=== PATIENT | male | born 1980 | race Two or more races ===

== ENCOUNTER 2020-02-04 06:54 | Inpatient (IN) | payer MEDICAID ==
[~2020-02-04] VITALS: Ht 162.6 cm; Wt 55.6 kg
--- NOTE | 2020-02-04 07:09 | NUR ---
MONITOR SHOWS SINUS TACH, SBAR REPORT TO AM SHIFT, PT SLEEPING.
--- NOTE | 2020-02-04 07:12 | NUR ---
ra 92%, nc 3 litre of O2 via nc improved to 99%.
[2020-02-04] MEDS ORDERED: IV NORMAL SALINE 1000 ML BAG IV ONE ×3 (07:15→08:30)
--- NOTE | 2020-02-04 07:30 | NUR ---
pt awake, axo x 4. pt admits to occasional cocaine use. pt deneis cp or sob at this time.
[2020-02-04 07:35] LABS: BASOPHILS % (AUTO) 0.2 % (0.0-2.0); EOSINOPHILS % (AUTO) 0.1 % (0.0-7.0); HEMATOCRIT 43.6 % (36.7-47.1); HEMOGLOBIN 14.8 g/dL (12.5-16.3); LYMPHOCYTES # (AUTO) 0.6 K/uL (20.0-40.0); LYMPHOCYTES % (AUTO) 6.2 % (20.5-51.5); MEAN CORPUSCULAR HEMOGLOBIN 32.6 uug (23.8-33.4); MEAN CORPUSCULAR HGB CONC 34 g/dL (32.5-36.3); MEAN CORPUSCULAR VOLUME 96.1 fL (73.0-96.2); MONOCYTES # (AUTO) 0.5 K/uL (2.0-10.0); MONOCYTES % (AUTO) 5.7 % (0.0-11.0); NEUTROPHILS # (AUTO) 8.4 K/uL (1.8-8.9); NEUTROPHILS % (AUTO) 87.8 % (38.5-71.5); PLATELET COUNT (AUTO) 225 K/uL (152-348); RED BLOOD CELL COUNT(AUTO) 4.54 MIL/uL (4.06-5.63); WHITE BLOOD COUNT (AUTO) 9.6 K/uL (3.6-10.2)
[2020-02-04 07:37] LABS: CARBON DIOXIDE 16 mmol/L (21-32); CHLORIDE 99 mmol/L (98-107); CREATININE 1.7 mg/dL (0.6-1.3); GLUCOSE 198 mg/dL (74-106); POTASSIUM 3.1 mmol/L (3.5-5.1); UREA NITROGEN, BLOOD 11 mg/dL (7-18)
[2020-02-04 07:45] LABS: ETHANOL 4 MG/DL (0-0)
[2020-02-04 07:52] LABS: ALANINE AMINOTRANSFERASE 122 U/L (16-63); ALKALINE PHOSPHATASE 77 U/L (50-136); ASPARTATE AMINOTRANSFERASE 163 U/L (15-37); BILIRUBIN,DIRECT 0.3 mg/dL (0.0-0.2); BILIRUBIN,TOTAL 0.7 mg/dL (0.2-1.0); CREATINE KINASE, TOTAL 1958 U/L (39-308); TOTAL PROTEIN, SERUM 8.4 g/dL (6.4-8.2)
[2020-02-04 07:56] LABS: ACETAMINOPHEN < 2.0 ug/mL (10-30)
[2020-02-04 08:12] LABS: *BILIRUBIN,URIN NEGATIVE (NEGATIVE); *BLOOD, URINE 2+ (NEGATIVE); *CLARITY,URINE CLEAR (CLEAR); *COLOR,URINE YELLOW (YELLOW); *KETONES,URINE NEGATIVE (NEGATIVE); LEUKOCYTE ESTERASE ,URINE NEGATIVE (NEGATIVE); NITRITE, URINE NEGATIVE (NEGATIVE); UGLUCOSE NEGATIVE (NEGATIVE)
[2020-02-04] MEDS ORDERED: ASPIRIN 81 MG TAB.CHEW PO ONE (08:15)
[2020-02-04 08:23] LABS: *AMPHETAMINE, URINE POSITIVE (NEGATIVE); *CANNABINOID, URINE NEGATIVE (NEGATIVE); *COCCAINE, URINE NEGATIVE (NEGATIVE); *OPIATE, URINE NEGATIVE (NEGATIVE); *PHENCYCLIDINE SCREEN,URINE NEGATIVE (NEGATIVE)
[2020-02-04] MEDS ORDERED: POTASSIUM BICARBONATE/CIT AC 25 MEQ TABLET.EFF PO ONE (08:30)
[2020-02-04] MEDS ORDERED: ASPIRIN 81 MG TAB.CHEW ONE (08:31)
[2020-02-04] MEDS ORDERED: POTASSIUM BICARBONATE/CIT AC 25 MEQ TABLET.EFF ONE (08:31)
--- NOTE | 2020-02-04 08:37 | NUR ---
Dr. sorenson admitted the pt to tele. transfer pending on bed availability
[2020-02-04] MEDS ORDERED: VANCOMYCIN IV 200 ML ONE (08:44)
[2020-02-04] MEDS ORDERED: CEFTRIAXONE /D5W 50ML IVPB **ER PYXIS IV ONE (08:45)
[2020-02-04] MEDS ORDERED: CEFTRIAXONE 1 G in IV DEXTROSE 5% 50 ML IV ONE (08:45)
[2020-02-04] MEDS ORDERED: LORAZEPAM 2 MG/1 ML VIAL IM ONE (08:45)
[2020-02-04] MEDS ORDERED: VANCOMYCIN IV 1,500 MG in IV DEXTROSE 5% 250 ML IV ONE (08:45)
[2020-02-04] MEDS ORDERED: LORAZEPAM 2 MG/1 ML VIAL ONE ×2 (09:10→16:59)
--- NOTE | 2020-02-04 11:00 | NUR ---
Paris villanueva in EDM - 02/04/[address] at [address] delta quesada to dmit the pt to ms
[2020-02-04 11:04] LABS: WBC,URINE 0-3 /HPF (0-3)
[2020-02-04 11:05] LABS: BACTERIA,URINE NONE SEEN /HPF (NONE SEEN); SQUAMOUS EPITHELIAL CELL,UR FEW /HPF (NONE SEEN)
--- NOTE | 2020-02-04 11:13 | NUR ---
ELANA MONTOYA TALKING TO DR. RANGEL, CARDIOLOGY CONSULT.
[2020-02-04] MEDS ORDERED: HEPARIN/D5W DRIP 500 ML IV PRN (11:15)
[2020-02-04] MEDS ORDERED: POTASSIUM CHLORIDE 20 MEQ in IV D5/ 0.9% NACL 1,000 ML IV PRN (11:15)
[2020-02-04] MEDS ORDERED: LORAZEPAM 2 MG/1 ML VIAL IV PRN (11:15)
[2020-02-04] MEDS ORDERED: MORPHINE SULFATE 2 MG/1 ML DISP.SYRIN IV PRN (11:15)
[2020-02-04] MEDS ORDERED: ONDANSETRON 4 MG/2 ML VIAL IV PRN (11:15)
[2020-02-04 11:32] LABS: BILIRUBIN,TOTAL 0.6 mg/dL (0.2-1.0); POTASSIUM 4.5 mmol/L (3.5-5.1); TOTAL PROTEIN, SERUM 6.3 g/dL (6.4-8.2)
[2020-02-04 13:14] LABS: MAGNESIUM 2.7 mg/dL (1.8-2.4); PHOSPHOROUS 2.5 mg/dL (2.5-4.9)
--- NOTE | 2020-02-04 13:29 | NUR ---
DR. RANGEL, SQL MANAGER AT BEDSIDE, ORDERING TO D/C HEPARIN DRIP. HEPARIN DRIP WAS NOT STARTED ON THE PT.
[2020-02-04 13:43] LABS: BASOPHILS % (AUTO) 0.3 % (0.0-2.0); HEMATOCRIT 38.5 % (36.7-47.1); HEMOGLOBIN 13.2 g/dL (12.5-16.3); LYMPHOCYTES # (AUTO) 1.5 K/uL (20.0-40.0); LYMPHOCYTES % (AUTO) 15.7 % (20.5-51.5); MEAN CORPUSCULAR HEMOGLOBIN 31.9 uug (23.8-33.4); MEAN CORPUSCULAR HGB CONC 34 g/dL (32.5-36.3); MEAN CORPUSCULAR VOLUME 93.4 fL (73.0-96.2); MONOCYTES # (AUTO) 1.1 K/uL (2.0-10.0); MONOCYTES % (AUTO) 11.7 % (0.0-11.0); NEUTROPHILS # (AUTO) 6.8 K/uL (1.8-8.9); NEUTROPHILS % (AUTO) 72.3 % (38.5-71.5); PLATELET COUNT (AUTO) 200 K/uL (152-348); RED BLOOD CELL COUNT(AUTO) 4.13 MIL/uL (4.06-5.63); WHITE BLOOD COUNT (AUTO) 9.5 K/uL (3.6-10.2)
--- NOTE | 2020-02-04 16:14 | NUR ---
PT ON BED, MONITOR ON, PT DENEIS ANY CO AT THIS POINT. PT REQUESTING WATER AND JUICE. BUT PT NPO BY ADMITTING
[2020-02-04] MEDS ORDERED: OLANZAPINE 5 MG TABLET ONE (16:25)
--- NOTE | 2020-02-04 16:29 | NUR ---
PT CAME OUT OF ROOM, LOOKING FRIGHTENED, SAYING " THERE ARE COUPLE OF MICED COMING OUT OF THE WHOLE IN THE CEILING", PT TOOK THE HEPLOCK .TRIED TO CALM THE PT. CHANGED THE PT ROOM AND COMFORT MEASURES PROVIDED. ZYPREXA WAS ORDERED BY ELANA MONTOYA, ADMINISTERED. ONCE ON BED AND ON MONITOR, PT WAS TACHCARDIC RATE OF 140
--- NOTE | 2020-02-04 16:37 | NUR ---
checked back on the pt in room 5, pt not on the bed, rushed out side with Dr. trejo to find the pt.
--- NOTE | 2020-02-04 16:50 | NUR ---
found the pt in the back parking lot, wet, standing on top of one the cars in the parking lot, scared of being attacked by the mice. with Dr. dean, assissted pt down the car safely, pt said that he slipped on a puddle of water and thats why he is wet. pt denied that his head hit the floor, no hematoma/abrasion noticed on examination on the head. pt deneis any pain or any injury to any part of the body, small abrasions noticed on the right knee. pt was able to walk back from back parking lot to room 5 in bed. placed pt on bed, monitor on, comfort measures provided. medicated pt with er md orders. see the emar.
[2020-02-04] MEDS ORDERED: diphenhydrAMINE 50 MG/1 ML VIAL IM STA (16:51)
[2020-02-04] MEDS ORDERED: LORAZEPAM 2 MG/1 ML VIAL IM STA (16:51)
[2020-02-04] MEDS ORDERED: diphenhydrAMINE 50 MG/1 ML VIAL ONE (16:59)
[2020-02-04] MEDS ORDERED: ZIPRASIDONE MESYLATE 20 MG VIAL IM ONE ×2 (16:59→17:00)
--- NOTE | 2020-02-04 19:31 | NUR ---
pt in bed, moving alot in the bed, hallucinating about the "things" he sees in the bed. able to talk in full sentences.
[2020-02-04] MEDS ORDERED: OLANZAPINE ZYDIS 5 MG TAB.RAPDIS PO SCH (21:00)
--- NOTE | 2020-02-05 | NUR ---
Report given to AVINASH Figueroa
--- NOTE | 2020-02-05 00:05 | NUR ---
Received report from ER
[2020-02-05 01:05] VITALS: BP 111/75
--- NOTE | 2020-02-05 04:29 | NUR ---
Pt received from ER via [facility]. Able to ambulate. Denies pain or SOB. Assessment complete. Patient is alert but is having visual hallucinations. No other issues or concerns at this time. Addendum: 02/05/20 at 0430 by TRINH CALVERT RN at 0035
[2020-02-05 05:31] VITALS: BP 116/68
--- NOTE | 2020-02-05 06:11 | NUR ---
Patient slept throughout the night with no complaints. Occasionally would ask for water but was instructed he is to remain NPO and he agrees. No pain or SOB at this time. SR on monitor. No other issues or concerns at this time. Will endorse to day shift.
--- NOTE | 2020-02-05 07:45 | NUR ---
Received PT in bed, asleep with safety measures. No acute distress or no shortness of breath noted. Bed low, lock with 2 siderails up. Call light within reach. Will continue to monitor
[2020-02-05 08:04] LABS: BILIRUBIN,TOTAL 0.8 mg/dL (0.2-1.0); CREATININE 0.9 mg/dL (0.6-1.3); MAGNESIUM 2.5 mg/dL (1.8-2.4); PHOSPHOROUS 2.4 mg/dL (2.5-4.9); POTASSIUM 3.6 mmol/L (3.5-5.1); TOTAL PROTEIN, SERUM 6.7 g/dL (6.4-8.2)
[2020-02-05 08:05] LABS: BASOPHILS % (AUTO) 0.3 % (0.0-2.0); EOSINOPHILS % (AUTO) 0.2 % (0.0-7.0); HEMATOCRIT 33.3 % (36.7-47.1); HEMOGLOBIN 11.6 g/dL (12.5-16.3); LYMPHOCYTES # (AUTO) 1.8 K/uL (20.0-40.0); LYMPHOCYTES % (AUTO) 26.6 % (20.5-51.5); MEAN CORPUSCULAR HGB CONC 35 g/dL (32.5-36.3); MEAN CORPUSCULAR VOLUME 94.7 fL (73.0-96.2); MONOCYTES # (AUTO) 0.8 K/uL (2.0-10.0); MONOCYTES % (AUTO) 11.2 % (0.0-11.0); NEUTROPHILS # (AUTO) 4.2 K/uL (1.8-8.9); NEUTROPHILS % (AUTO) 61.7 % (38.5-71.5); PLATELET COUNT (AUTO) 207 K/uL (152-348); RED BLOOD CELL COUNT(AUTO) 3.52 MIL/uL (4.06-5.63); WHITE BLOOD COUNT (AUTO) 6.8 K/uL (3.6-10.2)
[2020-02-05] MEDS ORDERED: FAMOTIDINE. 20 MG/2 ML VIAL IV SCH (09:00)
[2020-02-05] MEDS ORDERED: POTASSIUM PHOSPHATE MM 7.5 MMOL in IV NORMAL SALINE 97.5 ML IV ONE (10:30)
[2020-02-05 11:22] VITALS: BP 126/92
[2020-02-05] MEDS ORDERED: ASPIRIN 81 MG TAB.CHEW PO SCH (11:30)
--- NOTE | 2020-02-05 11:30 | NUR ---
PT stated that they want to go home on AMA. IV removed, no bleeding, no swelling or no blood noted. Dr. Shravan Bloom made aware. Preparing paperwork.
[2020-02-05 11:49] LABS: THYROID STIMULATING HORMONE 2.127 mIU/mL (0.358-3.740)
--- NOTE | 2020-02-05 12:18 | NUR ---
PT signed AMA paperwork. PT is independent and got ready themselves. PT stated that they will be picked up by partner. No acute distress noted. No shortness of breath. PT able to verbalize needs. PT stated that they will follow up with their primary physician. Left walking out of hospital room towards elevators
--- NOTE | 2020-02-05 12:45 | NUR ---
Nurse provided PT teaching. Educated with verbal instructions. PT refused all.
== END 2020-02-05 12:45 | disposition left against medical advice (07) | DRG 812 ==
LOC: ER 06:58 → TRANSITION 16:18 → TELE3 16:19 → MEDSURG3 02-05 12:15
PROVIDERS: ADMIT Internal Medicine; ATTEND Internal Medicine
DX: T43.621A Poisoning by amphetamines, accidental (unintentional), initial encounter (principal); G92 Toxic encephalopathy; Y92.039 Unspecified place in apartment as the place of occurrence of the external cause; I21.A1 Myocardial infarction type 2; Z20.828 Contact with and (suspected) exposure to other viral communicable diseases; T42.4X1A Poisoning by benzodiazepines, accidental (unintentional), initial encounter; F15.10 Other stimulant abuse, uncomplicated; F13.10 Sedative, hypnotic or anxiolytic abuse, uncomplicated; N17.0 Acute kidney failure with tubular necrosis; K76.9 Liver disease, unspecified; M62.82 Rhabdomyolysis; F19.10 Other psychoactive substance abuse, uncomplicated; E87.2 Acidosis; E87.6 Hypokalemia; R00.0 Tachycardia, unspecified; F99 Mental disorder, not otherwise specified
CPT/HCPCS: 36415; 70030-TC; 70450; 71045; 83605; 83690; 83735; 84100; 84443; 85025; 85730; 87040; 93005; A4663; G0378; G0480; J0696; J1200; J2060; J3370; J3480; J3486; J3490; J7030; J7042